=== PATIENT | male | born 1960 | race Hispanic/Latino ===

== ENCOUNTER 2020-12-18 07:40 | Inpatient (IN) | payer MEDICARE ==
[~2020-12-18] VITALS: Ht 172.7 cm; Wt 74.8 kg
[~2020-12-18 07:40] MED LIST: ASPI-556 PO; ATOR40TA28 PO; FOLI0.8T22 PO; INSU10VI3 SQ; LISI40TA9 PO; METO25 PO; PHOSLOC PO
[2020-12-18 09:09] LABS: BASOPHILS % (AUTO) 0.5 % (0.0-5.0); EOSINOPHILS % (AUTO) 3.7 % (0.0-8.0); HEMATOCRIT 35.3 % (42-54); LYMPHOCYTES % (AUTO) 21.6 % (21.0-51.0); MEAN CORPUSCULAR HEMOGLOBIN 29.2 pg (27.0-33.0); MEAN CORPUSCULAR HGB CONC 31.4 g/dL (32.0-36.0); MEAN CORPUSCULAR VOLUME 92.9 fL (79-99); MONOCYTES % (AUTO) 8.4 % (3.0-13.0); NEUTROPHILS % (AUTO) 65.2 % (40.0-77.0); PLATELET COUNT (AUTO) 155 K/uL (130-400); RED CELL DISTRIBUTION WIDTH 15.3 % (11.0-15.5); WHITE BLOOD COUNT (AUTO) 11.5 K/uL (4.8-10.8)
[2020-12-18 09:19] LABS: CREATININE 7.1 mg/dL (0.5-1.5); POTASSIUM 4.8 mmol/L (3.5-5.1)
[2020-12-18 09:27] LABS: ALBUMIN 4.1 g/dL (3.5-5.0); BILIRUBIN,TOTAL 0.5 mg/dL (0.2-1.0); TOTAL PROTEIN, SERUM 8.3 g/dL (6.0-8.3)
[2020-12-18 09:51] LABS: ABG BASE EXCESS -0.4 mmol/L (-2.0-3.0); ABG HCO3 23.6 mmol/L (21.0-28.0); ABG PCO2 37 mmHg (35-48)
[2020-12-18] MEDS ORDERED: ENOXAPARIN SODIUM 30 MG/0.3 ML SQ ONE (10:17)
[2020-12-18] MEDS ORDERED: PANTOPRAZOLE 40 MG TAB DR ONE (10:18)
[2020-12-18 10:33] LABS: TROPONIN I < 0.04 ng/mL (0.00-0.06)
[2020-12-18 10:50] LABS: CREATINE KINASE, TOTAL 66 U/L (21-232); MYOGLOBIN 238 ng/mL (10-92)
[2020-12-18] MEDS ORDERED: ONDANSETRON 4MG INJ IVP PRN (11:00)
[2020-12-18] MEDS ORDERED: DEXTROSE 50%-WATER 50 ML DISP.SYRIN IV PRN (11:15)
[2020-12-18] MEDS ORDERED: GLUCAGON 1MG KIT 1 MG ML IM PRN (11:15)
[2020-12-18 12:00] VITALS: BP 196/88
[2020-12-18] MEDS ORDERED: HYDR-3421 PO (12:01)
[2020-12-18] MEDS ORDERED: AMLO-343 PO (12:01)
[2020-12-18] MEDS: INSULIN R PO SS1/2 SQ SCH ×3 (13:04→20:21)
[2020-12-18 16:00] VITALS: BP 195/95
[2020-12-18 16:06] LABS: CREATINE KINASE, TOTAL 68 U/L (21-232); MYOGLOBIN 287 ng/mL (10-92); TROPONIN I < 0.04 ng/mL (0.00-0.06)
[2020-12-18] MEDS: INSULIN HUMULIN 70/30 100 UNIT/ML 3ML SQ SCH (17:00)
[2020-12-18] MEDS ORDERED: METOPROLOL TARTRATE 25 MG TAB PO SCH (17:30)
[2020-12-18] MEDS: CALCIUM AC 667MG CAP PO SCH ×2 (17:55→17:56)
[2020-12-18 20:00] VITALS: BP 171/80
[2020-12-18] MEDS: ATORVASTATIN 40 MG TABLET PO SCH (20:20)
[2020-12-18] MEDS: METOPROLOL TARTRATE 25 MG TAB PO SCH (20:20)
[2020-12-18] MEDS: HYDROXYZINE 25 MG TABLET PO SCH (20:20)
[2020-12-18 22:25] VITALS: BP 179/54
[2020-12-19] VITALS (10 sets, daily range): BP systolic 154–191; BP diastolic 73–90
[2020-12-19 01:06] LABS: CREATINE KINASE, TOTAL 68 U/L (21-232); MYOGLOBIN 329 ng/mL (10-92); TROPONIN I < 0.04 ng/mL (0.00-0.06)
[2020-12-19 05:16] LABS: BASOPHILS % (AUTO) 0.4 % (0.0-5.0); EOSINOPHILS % (AUTO) 2.2 % (0.0-8.0); HEMATOCRIT 31.5 % (42-54); LYMPHOCYTES % (AUTO) 17.4 % (21.0-51.0); MEAN CORPUSCULAR HEMOGLOBIN 30.1 pg (27.0-33.0); MEAN CORPUSCULAR HGB CONC 32.7 g/dL (32.0-36.0); MEAN CORPUSCULAR VOLUME 92.1 fL (79-99); MONOCYTES % (AUTO) 11.1 % (3.0-13.0); NEUTROPHILS % (AUTO) 68.5 % (40.0-77.0); PLATELET COUNT (AUTO) 130 K/uL (130-400); RED BLOOD CELL COUNT(AUTO) 3.42 MIL/uL (4.50-6.20); WHITE BLOOD COUNT (AUTO) 11.2 K/uL (4.8-10.8)
[2020-12-19 05:28] LABS: PHOSPHORUS 4.6 mg/dL (2.5-4.9); POTASSIUM 4.5 mmol/L (3.5-5.1)
[2020-12-19] MEDS: INSULIN R PO SS1/2 SQ SCH ×4 (06:16→20:50)
[2020-12-19] MEDS: PANTOPRAZOLE 40 MG TAB DR PO SCH ×2 (06:16→08:37)
[2020-12-19 08:18] LABS: CREATINE KINASE, TOTAL 79 U/L (21-232); MYOGLOBIN 332 ng/mL (10-92); TROPONIN I < 0.04 ng/mL (0.00-0.06)
[2020-12-19] MEDS: INSULIN HUMULIN 70/30 100 UNIT/ML 3ML SQ SCH ×2 (08:21→18:43)
[2020-12-19] MEDS: LISINOPRIL 40 MG TABLET PO SCH (08:38)
[2020-12-19] MEDS: AMLODIPINE 5 MG TAB PO SCH (08:38)
[2020-12-19] MEDS: METOPROLOL TARTRATE 25 MG TAB PO SCH ×2 (08:39→20:50)
[2020-12-19] MEDS: CALCIUM AC 667MG CAP PO SCH ×3 (08:39→17:09)
[2020-12-19] MEDS: Vitamin B Complex/Vit C/Folic Acid PO SCH (08:39)
[2020-12-19] MEDS: HYDROXYZINE 25 MG TABLET PO SCH ×2 (08:39→20:50)
[2020-12-19] MEDS: ASPIRIN 81 MG EC TAB PO SCH (08:43)
[2020-12-19] MEDS: ENOXAPARIN SODIUM 30 MG/0.3 ML SQ SCH (08:46)
[2020-12-19] MEDS: ATORVASTATIN 40 MG TABLET PO SCH (20:50)
[2020-12-20 04:23] VITALS: BP 151/77
[2020-12-20] MEDS: INSULIN R PO SS1/2 SQ SCH ×2 (05:24→11:30)
[2020-12-20 08:00] VITALS: BP 122/74
[2020-12-20] MEDS: Vitamin B Complex/Vit C/Folic Acid PO SCH (09:31)
[2020-12-20] MEDS: ASPIRIN 81 MG EC TAB PO SCH (09:31)
[2020-12-20] MEDS: AMLODIPINE 5 MG TAB PO SCH (09:31)
[2020-12-20] MEDS: METOPROLOL TARTRATE 25 MG TAB PO SCH (09:31)
[2020-12-20] MEDS: ENOXAPARIN SODIUM 30 MG/0.3 ML SQ SCH (09:31)
[2020-12-20] MEDS: HYDROXYZINE 25 MG TABLET PO SCH (09:31)
[2020-12-20] MEDS: LISINOPRIL 40 MG TABLET PO SCH (09:32)
[2020-12-20] MEDS: CALCIUM AC 667MG CAP PO SCH ×2 (09:35→11:48)
[2020-12-20] MEDS: INSULIN HUMULIN 70/30 100 UNIT/ML 3ML SQ SCH (09:54)
[2020-12-20 11:26] VITALS: BP 171/80
== END 2020-12-20 16:10 | disposition home or self-care (01) | DRG 640 ==
LOC: EDH 07:40 → EDHIP 09:50 → 4DH 11:01
PROVIDERS: ADMIT Internal Medicine Nephrology; ATTEND Internal Medicine Nephrology
PROC: 5A1D70Z Performance of Urinary Filtration, Intermittent, Less than 6 Hours Per Day (ICD-10-PCS; principal; 2020-12-18)
PROC: 5A1D70Z Performance of Urinary Filtration, Intermittent, Less than 6 Hours Per Day (ICD-10-PCS; 2020-12-19)
DX: E87.70 Fluid overload, unspecified (principal); N18.6 End stage renal disease; I13.11 Hypertensive heart and chronic kidney disease without heart failure, with stage 5 chronic kidney disease, or end stage renal disease; J90 Pleural effusion, not elsewhere classified; J81.1 Chronic pulmonary edema; E78.5 Hyperlipidemia, unspecified; I25.10 Atherosclerotic heart disease of native coronary artery without angina pectoris; E11.22 Type 2 diabetes mellitus with diabetic chronic kidney disease; E11.51 Type 2 diabetes mellitus with diabetic peripheral angiopathy without gangrene; D63.8 Anemia in other chronic diseases classified elsewhere; Z99.2 Dependence on renal dialysis; Z95.5 Presence of coronary angioplasty implant and graft
CPT/HCPCS: 36415; 36600; 71045; 80048; 80053; 82550; 82803; 82948; 83874; 83880; 84100; 84484; 85025; 90935; 93005; 93306; 93356; G0378; J1650; J1815

== ENCOUNTER 2022-03-08 12:14 | Inpatient (IN) | payer MEDICARE ==
[~2022-03-08] VITALS: Ht 172.7 cm; Wt 78.4 kg
[2022-03-08] VITALS (16 sets, daily range): BP systolic 90–199; BP diastolic 48–97
[~2022-03-08 12:14] MED LIST changes: +AMLO-343 PO; +CILO50TA PO; +CLON0.2T PO; +HYDR-3421 PO; +INSU100I35 SQ; -INSU10VI3 SQ; +METO200T49 PO; -METO25 PO; +SPIR100T5 PO; +VITA-395 PO
[2022-03-08] MEDS ORDERED: 0.9%NACL 1000ML 1,000 ML IV ONE (12:30)
[2022-03-08 12:59] LABS: BASOPHILS % (AUTO) 0.5 % (0.0-5.0); EOSINOPHILS % (AUTO) 1.4 % (0.0-8.0); HEMATOCRIT 47.7 % (42-54); LYMPHOCYTES % (AUTO) 13.6 % (21.0-51.0); MEAN CORPUSCULAR HEMOGLOBIN 29.9 pg (27.0-33.0); MEAN CORPUSCULAR HGB CONC 32.1 g/dL (32.0-36.0); MEAN CORPUSCULAR VOLUME 93.3 fL (79-99); MONOCYTES % (AUTO) 5.1 % (3.0-13.0); NEUTROPHILS % (AUTO) 79.1 % (40.0-77.0); PLATELET COUNT (AUTO) 165 K/uL (130-400); RED BLOOD CELL COUNT(AUTO) 5.11 MIL/uL (4.50-6.20); RED CELL DISTRIBUTION WIDTH 15.6 % (11.0-15.5); WHITE BLOOD COUNT (AUTO) 10.2 K/uL (4.8-10.8)
[2022-03-08] MEDS ORDERED: CALC667C10 PO (13:03)
[2022-03-08] MEDS ORDERED: AMLO-258 PO (13:06)
[2022-03-08] MEDS ORDERED: SUCR500T PO (13:06)
[2022-03-08 13:20] LABS: BILIRUBIN,TOTAL 0.4 mg/dL (0.2-1.0); TOTAL PROTEIN, SERUM 8.5 g/dL (6.0-8.3)
[2022-03-08 13:28] LABS: CREATININE 13.2 mg/dL (0.5-1.5)
[2022-03-08] MEDS ORDERED: KAYEXALATE 15GM/60ML PO ONE (13:30)
[2022-03-08] MEDS ORDERED: CALCIUM GLUC 1GM/10ML VIAL IV PRN (13:30)
[2022-03-08] MEDS ORDERED: INSULIN HUMULIN R 100 UNIT/ML 3ML IV ONE (13:30)
[2022-03-08] MEDS ORDERED: DEXTROSE 50%-WATER 50 ML DISP.SYRIN IV ONE (13:30)
[2022-03-08 14:08] LABS: APPEARANCE,URINE Clear (CLEAR); BILIRUBIN,URINE Negative (NEGATIVE); COLOR,URINE Yellow (YELLOW); GLUCOSE, URINE (UA) 500 mg/dL (NEGATIVE); KETONES,URINE Trace mg/dL (NEGATIVE); LEUKOCYTE ESTERASE ,URINE Negative (NEGATIVE); NITRATE,URINE Negative (NEGATIVE); OCCULT BLOOD,URINE Small (NEGATIVE); PH,URINE 7.5 (5.0-8.0); PROTEIN,URINE 300 mg/dL (NEGATIVE); UROBILINOGEN,URINE 0.2 mg/dL (0.2-1.0)
[2022-03-08 14:29] LABS: ALBUMIN 3.8 g/dL (3.5-5.0); BILIRUBIN,TOTAL 0.4 mg/dL (0.2-1.0); TOTAL PROTEIN, SERUM 8.3 g/dL (6.0-8.3)
[2022-03-08 14:34] LABS: CREATININE 13.5 mg/dL (0.5-1.5); POTASSIUM 9.5 mmol/L (3.5-5.1)
[2022-03-08 14:40] LABS: BACTERIA,URINE Rare /HPF (None Seen); SQUAMOUS EPITHELIAL CELL,UR 0-2 /HPF (0-2); WBC,URINE 0-1 /HPF (0-1)
[2022-03-08 16:13] LABS: ABG BASE EXCESS -12.7 mmol/L (-2.0-3.0); ABG HCO3 12.5 mmol/L (21.0-28.0); ABG OXYGEN SATURATION 92.4 % (95.0-99.0); ABG PCO2 28 mmHg (35-48)
[2022-03-08] MEDS ORDERED: ACETAMINOPHEN 325 MG TAB PO PRN ×2 (16:30)
[2022-03-08] MEDS ORDERED: DEXTROSE 50%-WATER 50 ML DISP.SYRIN IV PRN (16:30)
[2022-03-08] MEDS ORDERED: ONDANSETRON 4MG INJ IVP PRN (16:30)
[2022-03-08] MEDS: INSULIN R PO SS1/2 SQ SCH ×2 (16:30→21:00)
[2022-03-08] MEDS: FAMOTIDINE 20MG VIAL IV SCH (21:00)
[2022-03-09 03:21] VITALS: BP 155/69
[2022-03-09] MEDS: INSULIN R PO SS1/2 SQ SCH ×4 (06:23→21:44)
[2022-03-09 08:00] VITALS: BP 159/76
[2022-03-09] MEDS: FAMOTIDINE 20MG VIAL IV SCH ×2 (08:53→21:02)
[2022-03-09 09:10] LABS: HEPATITIS B SURFACE ANTIGEN Non-Reactive (Negative)
[2022-03-09 12:00] VITALS: BP 172/83
[2022-03-09 16:00] VITALS: BP 162/81
[2022-03-09 19:00] VITALS: BP 177/89
[2022-03-10] VITALS (17 sets, daily range): BP systolic 94–161; BP diastolic 55–97
[2022-03-10 05:16] LABS: HEMATOCRIT 48.1 % (42-54); MEAN CORPUSCULAR HEMOGLOBIN 29.6 pg (27.0-33.0); MEAN CORPUSCULAR HGB CONC 32.2 g/dL (32.0-36.0); RED BLOOD CELL COUNT(AUTO) 5.23 MIL/uL (4.50-6.20); RED CELL DISTRIBUTION WIDTH 15.5 % (11.0-15.5); WHITE BLOOD COUNT (AUTO) 9.1 K/uL (4.8-10.8)
[2022-03-10 05:44] LABS: PHOSPHORUS 11.5 mg/dL (2.5-4.9); POTASSIUM 5.3 mmol/L (3.5-5.1)
[2022-03-10 05:46] LABS: CREATININE 12.9 mg/dL (0.5-1.5)
[2022-03-10] MEDS: INSULIN R PO SS1/2 SQ SCH ×3 (06:07→17:07)
[2022-03-10] MEDS: FAMOTIDINE 20MG VIAL IV SCH (09:14)
== END 2022-03-10 17:00 | disposition home or self-care (01) | DRG 640 ==
LOC: EDH 12:14 → EDHIP 15:31 → 3CH 23:00
PROVIDERS: ADMIT Internal Medicine Nephrology; ATTEND Internal Medicine Nephrology
PROC: 5A1D70Z Performance of Urinary Filtration, Intermittent, Less than 6 Hours Per Day (ICD-10-PCS; principal; 2022-03-08)
PROC: 5A1D70Z Performance of Urinary Filtration, Intermittent, Less than 6 Hours Per Day (ICD-10-PCS; 2022-03-10)
DX: E87.5 Hyperkalemia (principal); N18.6 End stage renal disease; I12.0 Hypertensive chronic kidney disease with stage 5 chronic kidney disease or end stage renal disease; E87.1 Hypo-osmolality and hyponatremia; Z99.2 Dependence on renal dialysis; Z95.5 Presence of coronary angioplasty implant and graft; E78.00 Pure hypercholesterolemia, unspecified; E78.5 Hyperlipidemia, unspecified; I25.10 Atherosclerotic heart disease of native coronary artery without angina pectoris; E87.2 Acidosis; D64.9 Anemia, unspecified; Z79.4 Long term (current) use of insulin; E11.22 Type 2 diabetes mellitus with diabetic chronic kidney disease; E11.51 Type 2 diabetes mellitus with diabetic peripheral angiopathy without gangrene
CPT/HCPCS: 36415; 36600; 70450; 71045; 80048; 80053; 81001; 82803; 82948; 83605; 84100; 84132; 84484; 85025; 85027; 86704; 86706; 87040; 87340; 90935; 93005; G0378; J0610; J1815; J3490; J7070